=== PATIENT | male | born 1985 | race African-American/Black ===

== ENCOUNTER 2021-02-26 11:38 | Emergency (ER) | payer MEDICAID ==
[~2021-02-26] VITALS: Ht 185.4 cm; Wt 79.0 kg
[2021-02-26] MEDS ORDERED: IBUP-2029 PO (13:22)
[2021-02-26 14:08] VITALS: BP 135/88
== END 2021-02-26 14:09 | disposition home or self-care (01) ==
LOC: ER 11:52
DX: S83.8X1A Sprain of other specified parts of right knee, initial encounter (principal); J45.909 Unspecified asthma, uncomplicated; W18.39XA Other fall on same level, initial encounter; Y93.89 Activity, other specified; Y92.89 Other specified places as the place of occurrence of the external cause; Y99.8 Other external cause status
CPT/HCPCS: 73562; 99283; Z7610

== ENCOUNTER 2021-08-29 02:12 | Emergency (ER) | payer MEDICAID ==
[~2021-08-29] VITALS: Ht 185.4 cm; Wt 82.0 kg
[~2021-08-29 02:12] MED LIST: IBUP-2029 PO
[2021-08-29 02:24] VITALS: BP 122/80
[2021-08-29] MEDS ORDERED: PREDNISONE 20MG TABLET PO ONE (03:45)
[2021-08-29] MEDS ORDERED: DIPHENHYDRAMINE 25MG CAPSULE PO ONE (03:45)
[2021-08-29] MEDS ORDERED: FAMOTIDINE 20MG TABLET PO ONE (03:45)
[2021-08-29] MEDS ORDERED: P20 MT (04:47)
[2021-08-29] MEDS ORDERED: FAMO-135 MT (04:47)
== END 2021-08-29 04:56 | disposition home or self-care (01) ==
LOC: ER 02:12
DX: S60.561A Insect bite (nonvenomous) of right hand, initial encounter (principal); W57.XXXA Bitten or stung by nonvenomous insect and other nonvenomous arthropods, initial encounter; Y93.89 Activity, other specified; Y92.89 Other specified places as the place of occurrence of the external cause; Y99.8 Other external cause status; J45.909 Unspecified asthma, uncomplicated; Z79.899 Other long term (current) drug therapy
CPT/HCPCS: 99284; J7512; Q0163